=== PATIENT | male | born 1975 | race Caucasian/White ===

== ENCOUNTER 2020-10-15 01:39 | Emergency (ER) | payer OTHER ==
[~2020-10-15] VITALS: Ht 177.8 cm; Wt 66.2 kg
[2020-10-15 01:43] VITALS: BP 132/78
--- NOTE | 2020-10-15 02:09 | NUR ---
assessment made. Chart up for MD to see.
== END 2020-10-15 03:03 | disposition home or self-care (01) ==
LOC: ED 02:57
DX: K08.89 Other specified disorders of teeth and supporting structures (principal)
CPT/HCPCS: 99283